=== PATIENT | female | born 1955 | race Hispanic/Latino ===

== ENCOUNTER 2024-06-19 09:45 | Day surgery (SDC) | payer OTHER ==
[2024-06-16 09:38] LABS: Absolute Eosinophils 0.1 K/uL (0-0.5); Absolute Lymphocytes (CBC) 1.9 K/uL (0.7-4.9); Absolute Monocytes 0.5 K/uL (0.1-1.3); Basophils % 0.7 % (0-1.3); Eosinophils % 2.1 % (0-4.4); Hematocrit 37.5 % (36.0-45.0); Lymphocytes % 29.3 % (15.3-44.8); MCH 28.9 pg (27.0-35.0); MCHC 32.1 g/dL (32.0-36.0); Monocytes % 8.3 % (3.3-12.3); Neutrophils % 59.6 % (41.7-73.7); Platelets 269 thou/uL (152-406); RBC Red Blood Cell Count 4.17 M/uL (3.86-4.86); Red Cell Distribution Width 13.8 % (12.1-15.2)
[2024-06-16 09:55] LABS: Anion Gap 7.9 mEq/L (5.0-15.0); Potassium 3.9 mEq/L (3.5-5.1)
[2024-06-19] MEDS ORDERED: Ringers Lactate 1,000 ML IV ONE (10:22)
--- NOTE | 2024-06-19 11:37 | EKG ---
Test Date: 2024-06-16 Test Time: 10:23:26 Pilot Manager: ELIAZAR MEASUREMENT RESULTS: Intervals: Rate: 61 CT: 184 QRSD: 86 QT: 420 QTc: 422 [place]: P: 44 CT: 184 QRS: -65 T: 30 INTERPRETIVE STATEMENTS: Normal sinus rhythm Low voltage QRS Left anterior fascicular block Cannot rule out Anterior infarct, age undetermined Abnormal ECG Compared to ECG 10/17/2022 14:38:09 Low QRS voltage now present Myocardial infarct finding still present Electronically Signed On 06-19-24 11:36:32 [employer] by Torsten Deleon
[2024-06-19] MEDS ORDERED: propofoL 200 MG/20 ML VIAL IV ONE (11:38)
[2024-06-19] MEDS ORDERED: LIDOCAINE 1% MPF 5 ML VIAL ONE (11:38)
[2024-06-19 12:47] VITALS: TEMP 97.5
[2024-06-19 13:12] VITALS: BP 130/78; O2SAT 100
== END 2024-06-19 12:59 | disposition home or self-care (01) ==
LOC: OR 09:45
PROVIDERS: ATTEND Surgery
PROC: 0DBN8ZX Excision of Sigmoid Colon, Via Natural or Artificial Opening Endoscopic, Diagnostic (ICD-10-PCS; 2024-06-19)
PROC: 0DBP8ZX Excision of Rectum, Via Natural or Artificial Opening Endoscopic, Diagnostic (ICD-10-PCS; 2024-06-19)
PROC: 0DBM8ZX Excision of Descending Colon, Via Natural or Artificial Opening Endoscopic, Diagnostic (ICD-10-PCS; principal; 2024-06-19 12:00)
DX: Z12.11 Encounter for screening for malignant neoplasm of colon (principal); K64.8 Other hemorrhoids; D12.7 Benign neoplasm of rectosigmoid junction; D12.4 Benign neoplasm of descending colon; D12.5 Benign neoplasm of sigmoid colon; Z86.0100 Personal history of colon polyps, unspecified
CPT/HCPCS: 93005; 85025; 80048; 36415; 88305; 45385; J2704; J2003; J7120